=== PATIENT | female | born 1945 | race Caucasian/White ===

== ENCOUNTER → 2021-11-24 | Outpatient (CLI) | payer MEDICARE | END | disposition home or self-care (01) | LOC: SHCH 13:00 | PROVIDERS: ATTEND Student in an Organized Health Care Education/Training Program | DX: I35.0 Nonrheumatic aortic (valve) stenosis (principal); E78.5 Hyperlipidemia, unspecified | CPT/HCPCS: 93306 ==

== ENCOUNTER → 2022-05-30 | Outpatient (CLI) | payer MEDICARE | END | disposition home or self-care (01) | LOC: SHCH 08:56 | PROVIDERS: ATTEND Student in an Organized Health Care Education/Training Program | DX: I35.2 Nonrheumatic aortic (valve) stenosis with insufficiency (principal); I51.7 Cardiomegaly; E78.5 Hyperlipidemia, unspecified | CPT/HCPCS: 93306 ==

== ENCOUNTER 2022-06-20 06:56 | Day surgery (SDC) | payer MEDICARE ==
[2022-06-18 13:23] LABS: BASOPHILS % (AUTO) 0.8 % (0.0-5.0); EOSINOPHILS % (AUTO) 5.4 % (0.0-8.0); HEMATOCRIT 42.7 % (36-48); LYMPHOCYTES % (AUTO) 30.2 % (21.0-51.0); MEAN CORPUSCULAR HEMOGLOBIN 31.7 pg (27.0-33.0); MEAN CORPUSCULAR HGB CONC 32.6 g/dL (32.0-36.0); MEAN CORPUSCULAR VOLUME 97.3 fL (79-99); MONOCYTES % (AUTO) 7.2 % (3.0-13.0); PLATELET COUNT (AUTO) 199 K/uL (130-400); RED BLOOD CELL COUNT(AUTO) 4.39 MIL/uL (4.00-5.50); RED CELL DISTRIBUTION WIDTH 13.7 % (11.0-15.5); WHITE BLOOD COUNT (AUTO) 7.4 K/uL (4.8-10.8)
[2022-06-18 13:34] LABS: CREATININE 0.7 mg/dL (0.5-1.5)
[2022-06-18 13:35] VITALS: BP 150/80
[2022-06-18 13:37] LABS: INR 0.95 (0.85-1.15); PROTHROMBIN TIME 10.4 SEC (9.6-11.6)
[2022-06-18 13:38] LABS: PARTIAL THROMBOPLASTIN TIME 27.6 SEC (26.3-35.5)
[~2022-06-20] VITALS: Ht 157.5 cm; Wt 82.8 kg
[~2022-06-20 06:56] MED LIST: ACET1TAB86 PO; ALEN70TA80 PO; BUSP5TAB3 PO; CHOL100046 PO; DULO60CA64 PO; FOLIC ACID PO; L.AC1CAP6 PO; METH2.5T6 PO; PRED5TAB PO; ROSU20TA31 PO
[2022-06-20 07:10] VITALS: BP 129/79
[2022-06-20] MEDS ORDERED: LIDOCAINE HCL 2% VISCOUS 15 ML UDCUP ONE (07:47)
[2022-06-20] MEDS ORDERED: 0.9%NACL 1000ML 1,000 ML IV ONE (07:48)
[2022-06-20] MEDS ORDERED: LIDOCAINE PF 100MG/5ML (2%) SYRINGE 5ML ONE (08:37)
[2022-06-20] MEDS ORDERED: PROPOFOL 10 MG/ML 20ML VIAL IV ONE (08:37)
[2022-06-20 09:05] VITALS: BP 112/66
[2022-06-20 09:20] VITALS: BP 128/77
[2022-06-20 09:35] VITALS: BP 108/67
[2022-06-20 09:50] VITALS: BP 117/67
== END 2022-06-20 10:05 | disposition home or self-care (01) ==
LOC: DAH 06:56 → EDSTATUS 08:00 → DAH 10:05
PROVIDERS: ATTEND Student in an Organized Health Care Education/Training Program
DX: I51.89 Other ill-defined heart diseases (principal); Z20.822 Contact with and (suspected) exposure to COVID-19; I37.1 Nonrheumatic pulmonary valve insufficiency; I45.2 Bifascicular block; M06.9 Rheumatoid arthritis, unspecified; E78.5 Hyperlipidemia, unspecified; Z88.8 Allergy status to other drugs, medicaments and biological substances; Z88.6 Allergy status to analgesic agent; Z79.01 Long term (current) use of anticoagulants; Z79.899 Other long term (current) drug therapy
CPT/HCPCS: 87426; 80048; 85025; 85610; 85730; 36415; 93005; 93312; 93325; J7030; J2001; J2704; A4615; A4215; A4222; A4221; A4663; A4216; A4606; A4223 ×3; 96374; 99156

== ENCOUNTER → 2022-12-12 | Outpatient (CLI) | payer MEDICARE ==
[~2022-12-12] MED LIST changes: -ROSU20TA31 PO; +ROSU20TA73 PO
[2022-12-12 16:37] LABS: CREATININE 0.7 mg/dL (0.5-1.5); POTASSIUM 4.4 mmol/L (3.5-5.1)
== END | disposition home or self-care (01) ==
LOC: LAB 12:56
PROVIDERS: ATTEND Student in an Organized Health Care Education/Training Program
DX: R06.02 Shortness of breath (principal)
CPT/HCPCS: 36415; 80048

== ENCOUNTER → 2022-12-26 | Outpatient (CLI) | payer MEDICARE ==
[~2022-12-26] MED LIST changes: +IOHEXOL-350 75 ML VIAL IV ONE
== END | disposition home or self-care (01) ==
LOC: RAH 08:48
PROVIDERS: ATTEND Student in an Organized Health Care Education/Training Program
DX: R06.02 Shortness of breath (principal); I25.10 Atherosclerotic heart disease of native coronary artery without angina pectoris; M43.8X4 Other specified deforming dorsopathies, thoracic region
CPT/HCPCS: 71270; Q9967

== ENCOUNTER → 2023-02-21 | Outpatient (CLI) | payer MEDICARE ==
[~2023-02-21] MED LIST changes: -IOHEXOL-350 75 ML VIAL IV ONE
[2023-02-21 16:56] LABS: CHOLESTEROL 197 mg/dL (<200); HDL CHOLESTEROL 92 mg/dL (35-85); LDL DIRECT 88 mg/dL (0-99); TRIGLYCERIDES 70 mg/dL (30-200)
== END | disposition home or self-care (01) ==
LOC: LAB 13:50
PROVIDERS: ATTEND Student in an Organized Health Care Education/Training Program
DX: E78.5 Hyperlipidemia, unspecified (principal); Z79.899 Other long term (current) drug therapy
CPT/HCPCS: 36415; 80061; 82306

== ENCOUNTER → 2023-05-31 | Outpatient (CLI) | payer MEDICARE | END | disposition home or self-care (01) | LOC: SHCH 08:17 | PROVIDERS: ATTEND Student in an Organized Health Care Education/Training Program | DX: I08.3 Combined rheumatic disorders of mitral, aortic and tricuspid valves (principal) | CPT/HCPCS: 93306 ==

== ENCOUNTER → 2023-06-26 | Outpatient (CLI) | payer MEDICARE ==
[2023-06-26 12:45] LABS: ALBUMIN 3.7 g/dL (3.5-5.0); BILIRUBIN,TOTAL 0.4 mg/dL (0.2-1.0); CREATININE 0.7 mg/dL (0.5-1.0); POTASSIUM 4.4 mmol/L (3.5-5.1); TOTAL PROTEIN, SERUM 7.4 g/dL (6.0-8.3)
== END | disposition home or self-care (01) ==
LOC: LAB 10:27
PROVIDERS: ATTEND Student in an Organized Health Care Education/Training Program
DX: I35.0 Nonrheumatic aortic (valve) stenosis (principal)
CPT/HCPCS: 36415; 80053

== ENCOUNTER → 2023-07-01 | Outpatient (CLI) | payer MEDICARE ==
[~2023-07-01] MED LIST changes: +IOHEXOL 350 MG/ML 100ML INFUS..BTL IV ONE; +METOPROLOL TARTRATE 1 MG/ML 5ML VIAL IV ONE
== END | disposition home or self-care (01) ==
LOC: RAH 10:12
PROVIDERS: ATTEND Student in an Organized Health Care Education/Training Program
DX: J44.9 Chronic obstructive pulmonary disease, unspecified (principal); J84.10 Pulmonary fibrosis, unspecified; I35.0 Nonrheumatic aortic (valve) stenosis; M41.84 Other forms of scoliosis, thoracic region; I25.10 Atherosclerotic heart disease of native coronary artery without angina pectoris; M47.815 Spondylosis without myelopathy or radiculopathy, thoracolumbar region; I42.9 Cardiomyopathy, unspecified
CPT/HCPCS: 74174; 75574; Q9967; J3490

== ENCOUNTER → 2023-09-04 | Outpatient (CLI) | payer MEDICARE ==
[~2023-09-04] MED LIST changes: -IOHEXOL 350 MG/ML 100ML INFUS..BTL IV ONE; -METOPROLOL TARTRATE 1 MG/ML 5ML VIAL IV ONE
== END | disposition home or self-care (01) ==
LOC: SHCH 15:27
PROVIDERS: ATTEND Internal Medicine Cardiovascular Disease
DX: I65.23 Occlusion and stenosis of bilateral carotid arteries (principal); R01.1 Cardiac murmur, unspecified; R06.02 Shortness of breath; I77.1 Stricture of artery
CPT/HCPCS: 93880

== ENCOUNTER → 2023-10-02 | Outpatient (CLI) | payer MEDICARE ==
[~2023-10-02] MED LIST changes: +ALBUTEROL 0.083% 2.5 MG/3 ML INH IH ONE
== END | disposition home or self-care (01) ==
LOC: RESP 12:37
PROVIDERS: ATTEND Internal Medicine Cardiovascular Disease
DX: R06.02 Shortness of breath (principal); R07.1 Chest pain on breathing
CPT/HCPCS: 94060

== ENCOUNTER → 2024-04-25 | Outpatient (CLI) | payer MEDICARE ==
[~2024-04-25] MED LIST changes: -ALBUTEROL 0.083% 2.5 MG/3 ML INH IH ONE; -ROSU20TA73 PO; +ROSU20TA98 PO
--- NOTE | 2024-04-28 21:52 | HMCSR ---
APPROVED REPORT EXAM: Two-dimensional and M-mode echocardiogram with Doppler and color Doppler. INDICATION ICD: Z95.2 Presence of prosthetic heart valve 2D Dimensions RVDd3.5 cmLVEF(%)55.3 (>50%)LVED Vol(simp.)83.0 mL IVSd1.1 (0.7-1.1cm)FS(%)29 %LVES Vol(simp.)55.0 mL LVDd4.8 (3.8-5.6cm)LA (2D)3.6 (1.6-4.0cm)LVEF(%, simp.)67 % PWd1.2 (0.7-1.1cm)Ao Root(2D)2.5 (2.0-3.7cm)LA ESV INDEX (BP)43.31 mL/m2 IVSs1.2 cmLVOT diam1.6 (1.8-2.4cm) LVDs3.5 (2.5-4.0cm)IVC diam1.1 cm PWs1.4 cm Aortic Valve AoV Vmax1.6 m/[place] Peak GR10.7 mmHgLVOT Vmax1.1 m/s AoV VTI0.3 mAo Mean GR5.7 mmHgLVOT VTI0.27 m ANDREY (VMAX)1.5 cm2AVA (VTI) 1.5 cm2 Mitral Valve MV E Vmax90.1 cm/sDECEL Aswy147 msMV Peak GR6 mmHg MV A Dwjs572.6 cm/sP 1/2 T89 msMV Mean GR2 mmHg E/A ratio0.8MVA (PHT)2.5 cm2 TDI E/E' Yjrhyg85.0E/E' Mlglsxv10.0 Medial E' Peak V6.00 cm/sLateral E' Peak V6.00 cm/s Pulmonary Valve PV Vmax1.1 m/s Tricuspid Valve RAP (EST) 3 mmHgRVSP3.0 mmHg Left Ventricle The left ventricle is normal size. There is normal left ventricular wall thickness. LVEF is 55-60%. N o left ventricle thrombus noted on this study. Right Ventricle The right ventricle is normal size. There is mild right ventricular wall thickness. The right ventric ular systolic function is normal. Atria The left atrium is moderately dilated. The right atrium size is normal. Aortic Valve Prosthetic aortic valve present. No paravalvular/perivalvular leak noted. No aortic regurgitation is present. AV Dimensionless Index is DVI 0.9 cm Prosthetic aortic valve pk gradient 11mmHg, mean 6mmHg Mitral Valve The mitral valve is mildly thickened. There is mitral annular calcification. There is trace of mitral valve regurgitation noted. There is no mitral valve stenosis. Tricuspid Valve The tricuspid valve is normal in structure. There is no tricuspid valve regurgitation noted. Pulmonic Valve The pulmonary valve is normal in structure. There is no pulmonic valvular regurgitation. Great Vessels The aortic root is normal in size. The IVC is normal in size and collapses >50% with inspiration. Pericardium There is no pericardial effusion. Other Information Quality : Adequate Conclusion The left ventricle is normal size. LVEF is 55-60%. The right ventricle is normal size. The right ventricular systolic function is normal. The left atrium is moderately dilated. The right atrium size is normal. 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 No paravalvular/perivalvular leak note d. There is no pericardial effusion.
== END | disposition home or self-care (01) ==
LOC: SHCH 08:02
PROVIDERS: ATTEND Student in an Organized Health Care Education/Training Program
DX: I08.0 Rheumatic disorders of both mitral and aortic valves (principal); Z95.2 Presence of prosthetic heart valve
CPT/HCPCS: 93306